=== PATIENT | male | born 1955 | race Caucasian/White ===

== ENCOUNTER 2023-01-30 10:15 | Day surgery (SDC) | payer MEDICARE, BC, SELFPAY ==
[2023-01-30] VITALS (11 sets, daily range): BP systolic 132–163; BP diastolic 82–89; PULSE 66–76; RESP 11–20; TEMP 36.2–36.7; O2SAT 94–99; BMI 32.3
--- NOTE | 2023-01-30 | DI.RAD.S_ITS ---
PROCEDURE: XR ABDOMEN 1V INDICATIONS: RT STENT PLACEMENT TECHNIQUE: Single intra-operative image acquired by the Urology service. COMPARISON: [facility], CR, XR KUB, 01/30/2023, 12:30. FINDINGS: Single intraoperative fluoroscopic image of the right abdomen demonstrates presence of a stent catheter projecting along the expected course of the right ureter. IMPRESSION: Intraoperative fluoroscopic support for right ureteral stent placement. Please see separate procedure note for further details. Dictated by: Michael Kenny M.D. on 01/30/2023 at 15:36 Approved by: Michael Kenny M.D. on 01/30/2023 at 15:37
--- NOTE | 2023-01-30 10:40 | DI.CT.S_ITS ---
PROCEDURE: CT KIDNEY URETER BLADDER (KUB) INDICATIONS: right flank pain TECHNIQUE: Axial sections were acquired from the lung bases to the pubic symphysis. Coronal and sagittal reformats were performed. For radiation dose reduction, the following was used: automated exposure control, adjustment of mA and/or kV according to patient size. COMPARISON: None. FINDINGS: Image quality: Excellent. Lung bases: Lung bases are clear. Heart size is normal. Urinary system: Both kidneys are normal in size. Small punctate nonobstructing left renal stones. There is a 4 mm right renal stone. Mild right hydronephrosis. There is an obstructing 5 mm mid right ureteral stone with associated mild right hydroureteronephrosis proximal to the stone. This stone measures approximately 690 Hounsfield units. Left ureter is normal in course and caliber. No left ureteral stones. Urinary bladder appears unremarkable. No abnormal wall thickening for degree of distension. No urinary bladder stones seen. Other solid organs: Liver is normal in size. There is a 1.3 cm fluid attenuation hepatic hypodensity likely representing a cyst. This is seen on image 26/series 2. Gallbladder is not visualized and presumably surgically absent.. Pancreas is normal in contours. No splenomegaly. No adrenal nodules. Peritoneum and bowel: Unenhanced bowel loops demonstrate normal wall thickness and caliber. Scattered colonic diverticulosis without acute diverticulitis. Normal appendix. Prominent duodenal diverticulum. Nodes and vessels: Multiple prominent retroperitoneal lymph nodes in the upper abdomen at the level of the renal vessels. There also multiple enlarged mesenteric lymph nodes with moderate adjacent mesenteric stranding. Largest is seen in the lower abdominal mesentery measuring 2.6 x 2.2 cm in transverse dimension as measured on image 54/series 2. The 2nd largest is noted on image 46/series 2 measuring approximately 2.4 x 1.8 cm in maximum dimension. Scattered atherosclerotic calcifications of the abdominal aorta and iliac vessels without aneurysmal dilatation. The inferior vena cava appears patent. No free air or free fluid. Abdominal wall: There is a fat-containing umbilical hernia without acute inflammation. Pelvis: No free pelvic fluid. No inguinal hernias. No pelvice adenopathy. Bones: No acute vertebral body compression fractures. Multilevel spondylitic changes throughout the imaged spine. No suspicious osseous lesions. IMPRESSION: 1. Obstructing 5 mm right mid ureteral stone with associated right hydroureteronephrosis. Mild right perinephric stranding. Recommend correlation for possible concurrent infectious uropathy. Incidental note of a 4 mm right renal stone 2. Nonobstructing punctate left renal stones. No hydronephrosis. 3. Multiple enlarged mesenteric lymph nodes of the upper abdomen with moderate mesenteric stranding. Findings may be related to infectious or inflammatory process although a neoplastic process such as lymphoma not excluded. Recommend clinical correlation and short interval follow-up CT. 4. Colonic diverticulosis without acute diverticulitis. 5. Normal appendix. 6. Other chronic findings as above. Dictated by: Michael Kenny M.D. on 01/30/2023 at 11:01 Approved by: Michael Kenny M.D. on 01/30/2023 at 11:11
--- NOTE | 2023-01-30 10:42 | PC.NURSE ---
right flank pain w/ history of kidney stones. States this feels like his normal kidney stones. states he is taking good po when he is not vomiting and in pain. Currently feels well. Refused offer of nausea/pain meds at this time. Concerned for hydronephrosis or stone that is not going to pass.
[2023-01-30 10:45] LABS: Add Manual Diff / Slide Review NO; Basophils Absolute Auto 0 /uL (0-100); Basophils Percent Auto 0.4 % (0-2); Eosinophils Absolute Auto 400 /uL (0-450); Eosinophils Percent Auto 4.5 % (2-4); Hematocrit 41.6 % (41-53); Hemoglobin 14.4 g/dL (13.5-17.5); Lymphocytes Absolute Auto 700 /uL (1100-4500); Mean Corpuscular HGB Conc 34.6 % (30-36); Mean Corpuscular Hemoglobin 32.2 PG (26-34); Mean Corpuscular Volume 92.9 fL (80-100); Monocytes Absolute Auto 600 /uL (0-900); Monocytes Percent Auto 7.5 % (3-14); Neutrophils Absolute Auto 6300 /uL (1500-7000); Neutrophils Percent Auto 78.6 % (50-75); Platelet Count 243 X10^3/uL (150-400); Red Blood Cell Count 4.48 X10^6/uL (4.5-5.9); Red Cell Distribution Width 13.1 % (11.6-14.8); White Blood Cell Count 8.1 X10^3/uL (4.5-11.0)
[2023-01-30 10:53] LABS: Alanine Aminotransferase 27 IU/L (<50); Albumin 4.4 g/dL (3.5-5.0); Albumin Globulin Ratio 1.3 (1.0-2.8); Alkaline Phosphatase 84 U/L (38-126); Aspartate Aminotransferase 30 IU/L (17-59); BUN Creatinine Ratio 10.5 (6-22); Bilirubin Total 0.9 mg/dL (0.2-1.3); Blood Urea Nitrogen 27 mg/dL (9-20); Calcium 9.9 mg/dL (8.4-10.2); Carbon Dioxide 26 mmol/L (22-32); Chloride 99 mmol/L (98-107); Estimated Glomerular Filt Rate 26 mL/min (>60); Globulin 3.3 g/dL (1.7-4.1); Glucose 117 mg/dL (80-110); HEMOLYSIS < 15 (0-50); Lipase 165 U/L (23-300); Potassium 4.2 mmol/L (3.4-5.1); Sodium 134 mmol/L (137-145); Total Protein 7.7 g/dL (6.3-8.2)
[2023-01-30] MEDS: SODIUM CHLORIDE 0.9% 1,000 ML 1000 ML IV (10:59)
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
[2023-01-30 11:26] LABS: Amorphous Sediment Urine 1+; Bacteria Urine None Seen; Culture Indicated Urine Cult Not Indicated; RBC Urine None Seen (0-5/HPF); Squamous Epithelial Cell Urine None Seen (0-5/HPF); WBC Urine 0-1/HPF (0-5/HPF)
--- NOTE | 2023-01-30 12:35 | DI.RAD.S_ITS ---
PROCEDURE: XR KUB INDICATIONS: dr. joe required. TECHNIQUE: One view of the abdomen acquired. COMPARISON: [facility], CT, CT KIDNEY URETER BLADDER (KUB), 01/30/2023, 11:31. FINDINGS: Surgical changes and devices: None. Bowel: Bowel gas pattern is normal. Soft tissues: Punctate 4 mm density projects over the lower right renal shadow compatible with previously seen renal stone in the right kidney. Tiny punctate nonobstructing left renal stones are not visualized radiographically. Previously described 5 mm mid right ureteral stone is not definitively seen on this study. Bones: No suspicious bony lesions. IMPRESSION: A punctate 4 mm density projects over the right lower renal shadow compatible with previously described nonobstructive renal stone. 5 mm mid right ureteral stone is not visualized radiographically. Tiny punctate left renal stones described on prior study not visualized radiographically. Otherwise, no acute radiographic abnormalities identified in the abdomen. Dictated by: Michael Kenny M.D. on 01/30/2023 at 12:21 Approved by: Michael Kenny M.D. on 01/30/2023 at 12:23
[2023-01-30] MEDS: LACTATED RINGERS 1,000 ML 42 ML IV (14:16)
--- NOTE | 2023-01-30 14:33 | PM.PREOP ---
Pre-operative Note COVID-19 Criteria for continued procedure: Expected advancement of disease process, Possibility delay results in more complex future surgery or treatment, Continuing or worsening of significant or severe pain, Deterioration of the patient's condition or overall health, Delay expected to result in less-positive ultimate med/surg outcome and Non-surgical alternatives not available or appropriate per current SOC Interval Note History & Physical reviewed/Exam performed by Physician: Yes Changes to H&P: No
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
[2023-01-30] MEDS: CEFAZOLIN VIAL 1 GM in SODIUM CHLORIDE 0.9% 100 ML IV (14:41)
[2023-01-30] MEDS: CEFAZOLIN 2 GM/100 ML PREMIX 100 ML IV (14:41)
--- NOTE | 2023-01-30 15:28 | SUR.OPER ---
Lithotomy on padded OR bed, head on pillow, arms secured on padded arm boards at <90 degrees abduction. Legs secured in padded yellow fins stirrups.
--- NOTE | 2023-01-30 15:35 | PM.OP.1 ---
Operative Date/Time/Diagnoses Date of procedure: 01/30/23 Time of procedure: 03:20 Pre-op diagnosis: 1. Obstructing 5 mm right mid ureteral calculus. 2. Intractable right renal colic. 3. Bilateral nephrolithiasis. 4. AMADOR Post-op diagnosis: same Procedure & Clinicians Procedure: 1. Cystoscopy/right ureteral stone manipulation without removal. 2. Cystoscopy/placement right ureteral stent. Same procedure as scheduled: Yes Indications: 1. Obstructing 5 mm right mid ureteral calculus. 2. Intractable right renal colic. 3. Bilateral nephrolithiasis. 4. AMADOR. Surgeon: Feroz Encinas Click Yes if Unassisted: Yes Anesthesia Type: General Operative Notes Findings: 1. Urethra-normal caliber without annular stricture or lesion. 2. External sphincter-coapted with normal overlying urothelium. 3. Prostate 4.5+ cm length with elevated median bar and moderate lateral lobe hyperplasia. 4. Bladder-1+ trabeculation. Normal ureteral orifices bilaterally. Following instrumentation and advancement of the ureteral guidewire common then followed by the ureteral stent, obstructive efflux was seen emitting from the right ureteral orifice. Closure Type: not applicable Specimen(s): none sent Applied: other (Seven Trin[place] by 22-32 cm multi-length stent.) Estimated Blood Loss (mL): 0 Blood products transfused: none Procedure in detail: Patient was positioned in supine and was administered general anesthesia. He was then repositioned semi-lithotomy in the lower abdomen, genitalia, and groin were then prepped and draped in sterile fashion. The 22 Trin[place] panendoscope was then passed the lower urinary tract with findings as described above. A 0.35 hybrid guidewire was then selected and advanced in the right ureteral orifice with findings as described above. The index calculus was seen to be in the same position is that on preoperative CT imaging. The ureteral guidewire was advanced successfully beyond the obstructing stone and coiled into the proximal intrarenal collecting system. Next, a 7 Trin[place] by 22-32 cm multi-length stent was selected. This was advanced over the ureteral guidewire, again under direct and fluoroscopic guidance. Once positioned the retrieval line was removed. The bladder was then drained completely and all instrumentation was removed a final time. The patient was then repositioned in supine, was awakened, and transported recovery in stable condition. Post-operative Plan for aftercare: Discharge home.
[2023-01-30] MEDS: ONDANSETRON 4 MG/2 ML INJ IV (15:49)
== END 2023-01-30 16:17 | disposition home or self-care (01) ==
LOC: ED 13:08 → AC 13:47 → OR 02-01 09:04
PROVIDERS: Emergency Provider Emergency Medicine; PCP Family Medicine; Referring Provider Emergency Medicine; Visit Provider Specialist
PROC: (CPT 52332; principal; 2023-01-30 14:30)
DX: N20.0 Calculus of kidney (principal); N17.9 Acute kidney failure, unspecified; R10.9 Unspecified abdominal pain
CPT/HCPCS: 52332; 52330; 36415; 74018; 74176; 76000; 80053; 81003; 81015; 83690; 85025; 96361; 96374; 99284; G0378; J0690; J1100; J2405; J2704; J3010

== ENCOUNTER → 2023-02-03 11:25 | Outpatient (CLI) | payer MEDICARE, BC, SELFPAY ==
--- NOTE | 2023-02-03 11:28 | DI.RAD.S_ITS ---
PROCEDURE: XR KUB INDICATIONS: Kidney stone TECHNIQUE: One view of the abdomen acquired. COMPARISON: [facility], CR, XR ABDOMEN 1V, 01/30/2023, 15:14. [facility], CT, CT KIDNEY URETER BLADDER (KUB), 01/30/2023, 11:31. [facility], CR, XR KUB, 01/30/2023, 12:30. FINDINGS: Surgical changes and devices: None. Bowel: Bowel gas pattern is normal. Soft tissues: There is a right ureteral stent. A 4 mm mid ureteral stone is suspected at level of L4. Visualized solid organ contours appear normal in size. Bones: No suspicious bony lesions. IMPRESSION: Suspect a mid right ureteral stone. Dictated by: Sophia Rivers M.D. on 02/03/2023 at 14:25 Approved by: Sophia Rivers M.D. on 02/03/2023 at 14:26
== END ==
PROVIDERS: PCP Family Medicine; Referring Provider Specialist; Visit Provider Specialist
DX: N20.0 Calculus of kidney (principal); Z96.0 Presence of urogenital implants
CPT/HCPCS: 74018

== ENCOUNTER → 2023-02-04 15:37 | Outpatient (CLI) | payer MEDICARE, BC, SELFPAY ==
[2023-02-04 16:36] LABS: BUN Creatinine Ratio 21.2 (6-22); Blood Urea Nitrogen 22 mg/dL (9-20); Calcium 9.9 mg/dL (8.4-10.2); Carbon Dioxide 29 mmol/L (22-32); Chloride 99 mmol/L (98-107); Estimated Glomerular Filt Rate > 60 mL/min (>60); Glucose 100 mg/dL (80-110); HEMOLYSIS < 15 (0-50); Sodium 135 mmol/L (137-145)
== END ==
PROVIDERS: PCP Family Medicine; Referring Provider Specialist; Visit Provider Specialist
DX: N17.9 Acute kidney failure, unspecified (principal); N20.0 Calculus of kidney; Z96.0 Presence of urogenital implants
CPT/HCPCS: 36415; 51798; 80048; 81002; 99215

== ENCOUNTER 2023-02-15 07:07 | Day surgery (SDC) | payer MEDICARE, BC, SELFPAY ==
[2023-02-10 10:41] VITALS: BMI 31.5
[2023-02-15] VITALS (7 sets, daily range): BP systolic 109–138; BP diastolic 58–87; PULSE 63–72; RESP 12–16; TEMP 36.2–36.8; O2SAT 93–99; BMI 31.5
--- NOTE | 2023-02-15 | DI.RAD.S_ITS ---
PROCEDURE: XR KUB INDICATIONS: Right ureteral calculus TECHNIQUE: One view of the abdomen acquired. COMPARISON: [facility], , XR KUB, 02/03/2023, 11:37. FINDINGS: Surgical changes and devices: None. Bowel: Bowel gas pattern is normal. Soft tissues: No suspicious abdominal calcifications. Visualized solid organ contours appear normal in size. The right double-J stent is in place. A mid right ureter calculus remains present, centered at the L3-L4 level. Bones: No suspicious bony lesions. IMPRESSION: Unchanged position of right ureteral calculus, with double-J stent in place. Dictated by: Moncho Hair M.D. on 02/15/2023 at 8:24 Approved by: Moncho Hair M.D. on 02/15/2023 at 8:25
[2023-02-15] MEDS: LACTATED RINGERS 1,000 ML 21 ML IV ×2 (08:10→09:49)
--- NOTE | 2023-02-15 08:25 | PM.PREOP ---
Pre-operative Note COVID-19 Criteria for continued procedure: Expected advancement of disease process, Possibility delay results in more complex future surgery or treatment, Continuing or worsening of significant or severe pain, Delay expected to result in less-positive ultimate med/surg outcome and Non-surgical alternatives not available or appropriate per current SOC Interval Note History & Physical reviewed/Exam performed by Physician: Yes Changes to H&P: No
[2023-02-15] MEDS: ACETAMINOPHEN IV 1,000 MG/100 ML VIAL 400 MG IV (08:28)
[2023-02-15] MEDS: CEFAZOLIN 2 GM/100 ML PREMIX 100 ML IV (09:12)
--- NOTE | 2023-02-15 09:20 | SUR.OPER ---
Lithotomy on padded OR bed, head on pillow, arms secured on padded arm boards at <90 degrees abduction. Legs secured in padded yellow fins stirrups.
--- NOTE | 2023-02-15 10:02 | PM.OP.1 ---
Operative Date/Time/Diagnoses Date of procedure: 02/15/23 Time of procedure: 09:50 Pre-op diagnosis: 1. 5 mm obstructing right mid ureteral calculus. 2. Retained right ureteral stent. 3. History of right renal colic. Post-op diagnosis: same Procedure & Clinicians Procedure: 1. Cystoscopy/right ureteral stent removal. 2. Cystoscopy/right ureteroscopic laser lithotripsy. 3. Cystoscopy/right ureteral stent placement (6 Tu[place]uan by 22-32 cm multi-length). Same procedure as scheduled: Yes Indications: 1. Obstructing 5 mm right mid ureteral calculus. 2. Retained right ureteral stent. 3. History of right renal colic. Surgeon: Feroz Encinas Click Yes if Unassisted: Yes Anesthesia Type: General Operative Notes Findings: 1. Urethra-normal caliber without annular stricture or lesion. 2. External sphincter-coapted with normal overlying urothelium. 3. Prostate-4.5+ cm length with moderately obstructing lateral lobes and high median bar. 4. Bladder-1+ trabeculation. Mild edema and erythema surrounding right ureteral orifice with intact right distal ureteral stent coil. No other remarkable findings. 5. Right ureter-stone encountered in same position on preoperative imaging. Following removal of the right ureteral stent the stone was unchanged in position. There is moderate edema and mucosal excoriation at the impaction site. The stone had a mulberry morphology. Closure Type: not applicable Specimen(s): none sent Applied: other (Six Tu[place] by 20-32 cm multi-length stent.) Estimated Blood Loss (mL): 0 Blood products transfused: none Procedure in detail: The patient was positioned supine was administered general anesthesia. He was then repositioned in semi-lithotomy and the lower abdomen, genitalia, and groin were then prepped and draped in sterile fashion. A 22 Tuvaluan panendoscope was then passed the lower urinary tract with the findings as described above. The alligator foreign body grasper was then passed through the working channel of the aguirre endoscope in the distal extent of the right ureteral stent was engaged and then the scope was withdrawn bringing the distal ureteral portion of the stent beyond the urethral meatus. A 0.35 hybrid guidewire was then advanced through the lumen of the right ureteral stent advanced proximally under fluoroscopic guidance. The stent was then backloaded the remainder of the way off the hybrid guidewire and discarded. Next, a single lumen ureteral access sheath was advanced over the wire and was advanced proximally under fluoroscopic guidance to a point just distal to the index calculus. The obturator was then removed. The flexible ureteral scope was then advanced over the hybrid guidewire proximally under direct and fluoroscopic guidance to a point just distal to the position of the index calculus. A 200 micron laser fiber was requested. All operating room personnel and patient were fitted with laser safety eyewear. Laser lithotripsy was then commenced with overall good response to the energy level. It did migrate proximally into the renal pelvis and the remainder of the stone was treated within a inferior and posterior positioned calyx. Stone was fragmented in its entirety. The flexible ureteral scope was then removed. The hybrid guidewire was then advanced proximally under fluoroscopic guidance. The ureteral access sheath was then backloaded off the guidewire. The ureteral guidewire was then front loaded into the aguirre endoscope in the panendoscope was advanced in the lower urinary track and then to the level of the bladder. A 6 Tu[place] by 22-32 cm multi-length stent was then selected and advanced over the hybrid guidewire wire under direct and fluoroscopic guidance. A RETRIEVAL LINE WAS LEFT ATTACHED. The bladder is then drained completely and all instrumentation was removed. The patient was then repositioned in supine, awakened, transferred to [facility], and then transported recovery in stable condition. Complications: none Post-operative Disposition: PACU Plan for aftercare: Discharge home.
[2023-02-15] MEDS: FUROSEMIDE 40 MG/4 ML VIAL 20 MG IV (10:10)
[2023-02-15] MEDS: OXYCODONE IR 5 MG TABLET PO ×2 (11:07→11:35)
== END 2023-02-15 11:30 | disposition home or self-care (01) ==
PROVIDERS: PCP Family Medicine; Referring Provider Specialist; Visit Provider Specialist
PROC: (CPT 52356; principal; 2023-02-15 09:15)
DX: N20.1 Calculus of ureter (principal); Z87.442 Personal history of urinary calculi
CPT/HCPCS: 52356; 74018; 76000; C1771; J0131; J0690; J1100; J1940; J2405; J2704; J3010

== ENCOUNTER 2023-03-06 07:21 | Emergency (ER) | payer MEDICARE, BC, SELFPAY ==
[2023-03-06 07:27] VITALS: BP 136/78; PULSE 76; RESP 18; TEMP 36.7; O2SAT 99; BMI 31.5
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
== END 2023-03-06 07:57 | disposition home or self-care (01) ==
PROVIDERS: Emergency Provider Emergency Medicine; PCP Family Medicine
DX: H60.91 Unspecified otitis externa, right ear (principal); Z79.899 Other long term (current) drug therapy
CPT/HCPCS: 99281

== ENCOUNTER → 2023-03-24 08:38 | Outpatient (CLI) | payer MEDICARE, BC, SELFPAY ==
--- NOTE | 2023-03-24 08:39 | DI.RAD.S_ITS ---
PROCEDURE: XR KUB INDICATIONS: calculus of ureter TECHNIQUE: One view of the abdomen acquired. COMPARISON: [facility], CR, XR KUB, 02/15/2023, 7:07. FINDINGS: Surgical changes and devices: There is a neural removal of previously noted right-sided ureteral stent. Bowel: Bowel gas pattern is normal. Soft tissues: 4 mm calcification is seen projecting in mid to lower pole right kidney. No left-sided renal calcification is seen. Visualized solid organ contours appear normal in size. Bones: No suspicious bony lesions. IMPRESSION: Suggestion of a 4 mm right-sided renal stone. Interval removal of right-sided ureteral stent. Previously noted right ureteral stone is no longer seen. Dictated by: Vinicius Pop M.D. on 03/24/2023 at 9:22 Approved by: Vinicius Pop M.D. on 03/24/2023 at 9:23
== END ==
PROVIDERS: PCP Family Medicine; Referring Provider Specialist; Visit Provider Specialist
DX: N20.1 Calculus of ureter (principal); Z87.442 Personal history of urinary calculi
CPT/HCPCS: 74018; 99215

== ENCOUNTER → 2024-01-27 12:12 | Outpatient (CLI) | payer MEDICARE, BC, SELFPAY | PROVIDERS: PCP Family Medicine; Referring Provider Specialist; Visit Provider Specialist | DX: R97.20 Elevated prostate specific antigen [PSA] (principal) | CPT/HCPCS: 84153 ==

== ENCOUNTER → 2024-03-13 11:13 | Outpatient (CLI) | payer MEDICARE, BC, SELFPAY ==
--- NOTE | 2024-03-13 11:17 | DI.RAD.S_ITS ---
PROCEDURE: XR KNEE RT 3V INDICATIONS: KNEE PAIN TECHNIQUE: 3 views of the knee were acquired. COMPARISON: None. FINDINGS: No acute fracture or dislocation. Joint spaces are well maintained. Trace right knee effusion. IMPRESSION: No acute bony abnormality or significant effusion. Dictated by: Collette Mcadams M.D. on 03/13/2024 at 15:09 Approved by: Collette Mcadams M.D. on 03/13/2024 at 15:10
== END ==
LOC: RAD 11:15
PROVIDERS: PCP Family Medicine; Referring Provider Family Medicine; Visit Provider Family Medicine
DX: M25.561 Pain in right knee (principal)
CPT/HCPCS: 73562

== ENCOUNTER → 2024-03-29 13:30 | Outpatient (CLI) | payer MEDICARE, BC, SELFPAY ==
--- NOTE | 2024-03-29 13:31 | DI.RAD.S_ITS ---
PROCEDURE: XR KUB 1 image INDICATIONS: history of kidney stones TECHNIQUE: One view of the abdomen acquired. COMPARISON: [facility], CR, XR KUB, 03/24/2023, 9:09. Prior report is not available FINDINGS: 3 mm round calcific density projected over the inferior pole of the right kidney suspicious for a renal calculus as noted in history, unchanged. No gross radiographic evidence of left renal calculus. Bowel: Pattern of constipation. Bones: Cexn-lg-ccryysot degenerative changes lower thoracic, lumbar spine and hips unchanged. IMPRESSION: 3 mm calcific density projected over the inferior pole of the right kidney suspicious for a renal calculus, unchanged. Dictated by: South Mcmahan M.D. on 03/29/2024 at 14:55 Approved by: South Mcmahan M.D. on 03/29/2024 at 15:15
== END ==
PROVIDERS: PCP Family Medicine; Referring Provider Urology; Visit Provider Urology
DX: Z87.442 Personal history of urinary calculi (principal); Z09 Encounter for follow-up examination after completed treatment for conditions other than malignant neoplasm; M47.814 Spondylosis without myelopathy or radiculopathy, thoracic region; M47.816 Spondylosis without myelopathy or radiculopathy, lumbar region
CPT/HCPCS: 74018